=== PATIENT | female | born 1980 | race Caucasian/White ===

== ENCOUNTER 2016-11-03 05:26 | Emergency (ER) | payer MEDICAID, OTHER ==
[~2016-11-03] VITALS: Ht 154.9 cm; Wt 88.5 kg
[~2016-11-03 05:26] MED LIST: PREN1TAB82
[2016-11-03 05:35] VITALS: Ht 154.9 cm; Wt 88.5 kg
[2016-11-03] MEDS ORDERED: SULF1TAB31 PO ×2 (06:13→06:15)
[2016-11-03] MEDS ORDERED: CEPH-443 PO ×2 (06:13→06:15)
--- NOTE | 2016-11-03 07:18 | ERD ---
ER Documentation Chief Complaint Date/Time DATE: 11/03/16 TIME: 07:09 Chief Complaint Two abscess noted under abdominal flap. HPI 36 yr old female complaining of "bumps" under the flap of her pannus. Patient had 6 years ago. 3 months ago she started to feel bumps around her C- section scar. She noticed that the bumps opened and she had clear drainage from the sites. She has not put any medication on the site. Denies fever. Denies pain. Denies vomiting. ROS All systems reviewed and are negative except as per history of present illness. Medications Home Meds Active Scripts Cephalexin* (Keflex*) 500 Mg Capsule, 500 MG PO QID for 7 Days, CAP Prov:RONALD BARAHONA PA-C 11/03/16 Sulfamethoxazole/Trimethoprim* (Bactrim Ds* Tablet) 1 Each Tablet, 1 TAB PO BID , #14 TAB Prov:RONALD BARAHONA PA-C 11/03/16 Reported Medications Vit/Fe Fumarate/Fa ( Vitamin Tablet) 1 Tab Tablet 12/10/09 Allergies Allergies: Coded Allergies: Hydromorphone (Verified Allergy, Mild, RXN TO EITHER OR BOTH TORADOL/ DILAUDID (PER RN 12/11/09), 12/11/09) Ketorolac (Verified Allergy, Mild, REACTION TO EITHER OR BOTH TORADOL AND/ OR HYDROMORPHONE, 12/11/09) Oxycodone (Verified Allergy, Mild, HIVES, 12/11/09) Uncoded Allergies: NKA (Allergy, Mild, 12/10/09) PMhx/Soc History of Surgery: No Anesthesia Reaction: No Hx Neurological Disorder: No Hx Respiratory Disorders: No Hx Cardiac Disorders: No Hx Psychiatric Problems: No Hx Miscellaneous Medical Probl: No Hx Alcohol Use: No Hx Substance Use: No Hx Tobacco Use: No Smoking Status: Former smoker Physical Exam Vitals Vital Signs Date Time Temp Pulse Resp B/P Pulse Ox O2 Delivery O2 Flow Rate FiO2 11/03/16 05:35 97.2 86 18 132/89 98 Physical Exam GENERAL: The patient is well-appearing, well-nourished, in no acute distress CHEST: Clear to auscultation bilaterally. There are no rales, wheezes or rhonchi. HEART: Regular rate and rhythm. No murmurs, clicks, rubs or gallops. No S3 or S4. ABDOMEN:Soft, nontender and nondistended. Good bowel sounds. No rebound or guarding. No gross peritonitis. No gross organomegaly or masses. No Duran sign or McBurney point tenderness. SKIN: 2 small pinpoint open wounds over csection scar with no surrounding erythema. No purulence. Clear fluid extracted from wound. No induration. Procedures/MDM MDM: I have low suspicion for deep space cellulitis infection. Patient likely has infection developing secondary to the skin fold and warm environment. I will discharge patient with abx and recommend follow up in 2 days for close eval. I did not feel I&D was indicated because there is no fluctuance and wound is already draining. I did not close and cover wound site because I wanted to allow drainage. Patient's vitals are stable and patient is non toxic appearing. Departure Diagnosis: Primary Impression: Abscess Condition: Stable Patient Instructions: Abscess, Incision And Drainage Referrals: [facility] YOU HAVE RECEIVED A MEDICAL SCREENING EXAM AND THE RESULTS INDICATE THAT YOU DO NOT HAVE A CONDITION THAT REQUIRES URGENT TREATMENT IN THE EMERGENCY DEPARTMENT. FURTHER EVALUATION AND TREATMENT OF YOUR CONDITION CAN WAIT UNTIL YOU ARE SEEN IN YOUR DOCTORS OFFICE WITHIN THE NEXT 1-2 DAYS. IT IS YOUR RESPONSIBILITY TO MAKE AN APPOINTMENT FOR FOLOW-UP CARE. IF YOU HAVE A PRIMARY DOCTOR --you should call your primary doctor and schedule an appointment IF YOU DO NOT HAVE A PRIMARY DOCTOR YOU CAN CALL OUR PHYSICIAN REFERRAL HOTLINE AT IF YOU CAN NOT AFFORD TO SEE A PHYSICIAN YOU CAN CHOSE FROM THE FOLLOWING [facility] [address] [facility] [address] [facility] [address] [facility] [address] [facility] [address] [facility] [facility]. [address] Additional Instructions: FOLLOW UP WITH YOUR PRIMARY CARE PHYSICIAN TOMORROW.Return to this facility if you are not improving as expected. RONALD BARAHONA PA-C Nov 03, 2016 07:18
== END 2016-11-03 06:37 | disposition home or self-care (01) ==
LOC: FTE 05:26
DX: L02.211 Cutaneous abscess of abdominal wall (principal); Z87.891 Personal history of nicotine dependence
CPT/HCPCS: 99284